=== PATIENT | female | born 1930 | race Caucasian/White ===

== ENCOUNTER 2018-07-21 08:09 | Inpatient (IN) ==
[2018-07-21] MEDS ORDERED: ONDANSETRON 4 MG/2 ML VIAL ONE ×2 (08:49→10:13)
[2018-07-21] MEDS ORDERED: LIDOCAINE 2% 5 ML VIAL ONE (09:00)
[2018-07-21] MEDS ORDERED: PROPOFOL 200 MG/20 ML VIAL IV ONE (09:00)
[2018-07-21] MEDS: ONDANSETRON 4 MG/2 ML VIAL IV PRN ×6 (09:24→23:15)
[2018-07-21] MEDS: LACTATED RINGERS 1,000 ML IV SCH (09:24)
[2018-07-21] MEDS ORDERED: ONDANSETRON 4 MG/2 ML VIAL IV PRN (12:06)
[2018-07-21] MEDS ORDERED: PHENOL 1.4% THROAT SPRAY 177 ML BOTTLE PO PRN (12:10)
[2018-07-21] MEDS ORDERED: SODIUM CHLORIDE 0.9% 1,000 ML IV PRN (12:10)
[2018-07-21 15:12] LABS: Hematocrit 28.7 VOL% (35.7-47.0); Hemoglobin 8.3 GM/DL (12.0-16.0)
[2018-07-21] MEDS: SODIUM CHLORIDE 0.45% 1,000 ML IV SCH (15:32)
[2018-07-21] MEDS: PANTOPRAZOLE 40 MG VIAL IV SCH (20:42)
[2018-07-21] MEDS: HYDROmorphone 2 MG/1 ML VIAL IV PRN (20:43)
[2018-07-22] MEDS: ONDANSETRON 4 MG/2 ML VIAL IV PRN (04:22)
[2018-07-22 05:16] LABS: Basophils # 0.1 10*3/uL (0.0-0.2); Basophils % 0.9 % (0.0-0.8); Eosinophils % 0.2 % (0.00-10.9); Hematocrit 34.3 VOL% (35.7-47.0); Hemoglobin 10.3 GM/DL (12.0-16.0); Immature Granulocytes % 0.5 %; Immature Granulocytes Absolute 0.05 #; Lymphocytes # 1.1 10*3/uL (1.4-4.0); Lymphocytes % 11.2 % (21.3-54.2); Mean Corpuscular Hemoglobin 29 PG (27-34); Mean Corpuscular Volume 97.7 FL (87-102); Mean Platelet Volume 12.2 FL (9.6-12.0); Monocytes # 1.9 10*3/uL (0.11-0.8); Monocytes % 18.9 % (1.7-12.7); Neutrophils # 6.7 10*3/uL (1.4-7.4); Neutrophils % 68.3 % (38.7-73.9); Platelet Count 160 T/CUMM (130-400); Red Blood Count 3.51 MC/CUMM (3.8-5.5); Red Cell Distribution Width 25.1 % (9.3-17.3); White Blood Count 9.8 T/CUMM (4-12)
[2018-07-22 05:34] LABS: Hemoglobin 10.3 GM/DL (12.0-16.0)
[2018-07-22 05:40] LABS: Atypical Lymphocytes Few; Band Neutrophils 1 % (0-10); Hypochromasia 1+; Lymphocytes 9 % (20-55); Macrocytosis 1+; Platelet Estimate Adequate; Polychromasia Slight; Segmented Neutrophils 73 % (50-85); Total Cells Counted 100
[2018-07-22 05:42] LABS: Albumin 2.1 G/DL (3.4-5.0); Bilirubin,Total 1.4 MG/DL (0.2-1.0); Calcium 8.9 MG/DL (8.5-10.1); Osmolality,Calculated 282.5 MOS/KG (273-304); Potassium 4.5 MMOL/L (3.5-5.1); Total Protein 5.6 G/DL (6.4-8.3)
[2018-07-22] MEDS: PANTOPRAZOLE 40 MG VIAL IV SCH ×2 (08:51→20:49)
[2018-07-22] MEDS: HYDROmorphone 2 MG/1 ML VIAL IV PRN (08:58)
[2018-07-22] MEDS: SODIUM CHLORIDE 0.45% 1,000 ML IV SCH ×3 (09:12→17:44)
[2018-07-22] MEDS: LACTATED RINGERS 1,000 ML IV SCH (09:12)
[2018-07-22] MEDS ORDERED: ceFAZolin 1,000 MG in SYRINGE 1 EACH IV ONE (13:00)
[2018-07-22] MEDS ORDERED: LIDOCAINE 1%/EPI INJ 20 ML VIAL ONE (13:01)
[2018-07-22] MEDS ORDERED: FAT EMULSION 20% 250 ML IV SCH (14:00)
[2018-07-22 14:03] LABS: Cancer Antigen 19-9 4.9 U/ML (0-37); Carcinoembryonic Antigen 1.3 NG/ML (0.0-5.0)
[2018-07-22] MEDS ORDERED: GLUCAGON 1 MG VIAL IM PRN (15:19)
[2018-07-22] MEDS ORDERED: DEXTROSE 50% 25 GM/50 ML VIAL IV PRN (15:19)
[2018-07-22] MEDS: INSULIN REGULAR 100 UNIT/ML SUBCUT SCH ×2 (17:21→23:08)
[2018-07-22] MEDS: TRACE ELEMENTS (5) 1 ML, MULTIVITAMIN INJ 10 ML in AMINO ACIDS/DEXT/LYTES 4.25-5% 2,000 ML IV SCH (17:38)
[2018-07-23] MEDS: HYDROmorphone 2 MG/1 ML VIAL IV PRN ×3 (01:38→20:47)
[2018-07-23 05:45] LABS: Basophils % 0.4 % (0.0-0.8); Hematocrit 31.3 VOL% (35.7-47.0); Hemoglobin 10.3 GM/DL (12.0-16.0); Immature Granulocytes % 0.8 %; Immature Granulocytes Absolute 0.08 #; Lymphocytes # 0.9 10*3/uL (1.4-4.0); Lymphocytes % 9.1 % (21.3-54.2); Mean Corpuscular HGB Conc 32.9 GM/DL (32-36); Mean Corpuscular Hemoglobin 33 PG (27-34); Mean Corpuscular Volume 98.7 FL (87-102); Mean Platelet Volume 11.3 FL (9.6-12.0); Monocytes % 9.4 % (1.7-12.7); Neutrophils # 8.1 10*3/uL (1.4-7.4); Neutrophils % 80.3 % (38.7-73.9); Platelet Count 172 T/CUMM (130-400); Red Blood Count 3.17 MC/CUMM (3.8-5.5); Red Cell Distribution Width 24.8 % (9.3-17.3); White Blood Count 10.1 T/CUMM (4-12)
[2018-07-23] MEDS: INSULIN REGULAR 100 UNIT/ML SUBCUT SCH ×2 (06:03→11:57)
[2018-07-23 06:06] LABS: Hypochromasia Slight; Platelet Estimate Adequate
[2018-07-23 06:07] LABS: Macrocytosis Slight
[2018-07-23 06:13] LABS: Albumin 1.7 G/DL (3.4-5.0); Bilirubin,Total 2.1 MG/DL (0.2-1.0); Calcium 7.6 MG/DL (8.5-10.1); Osmolality,Calculated 275.2 MOS/KG (273-304); Potassium 4.3 MMOL/L (3.5-5.1); Total Protein 5.1 G/DL (6.4-8.3)
[2018-07-23 07:01] LABS: Calcium 7.4 MG/DL (8.5-10.1)
[2018-07-23 07:02] LABS: Osmolality,Calculated 276.2 MOS/KG (273-304); Potassium 4.3 MMOL/L (3.5-5.1)
[2018-07-23] MEDS: PANTOPRAZOLE 40 MG VIAL IV SCH ×2 (09:56→20:48)
[2018-07-23] MEDS: ONDANSETRON 4 MG/2 ML VIAL IV PRN ×2 (15:55→20:04)
[2018-07-23] MEDS: TRACE ELEMENTS (5) 1 ML, MULTIVITAMIN INJ 10 ML in AMINO ACIDS/DEXT/LYTES 4.25-5% 2,000 ML IV SCH (17:18)
[2018-07-23] MEDS: SODIUM CHLORIDE 0.45% 1,000 ML IV SCH (17:20)
[2018-07-24 05:13] LABS: Basophils % 0.3 % (0.0-0.8); Eosinophils % 0.5 % (0.00-10.9); Hematocrit 30.5 VOL% (35.7-47.0); Hemoglobin 9.1 GM/DL (12.0-16.0); Immature Granulocytes % 0.8 %; Immature Granulocytes Absolute 0.07 #; Lymphocytes # 0.6 10*3/uL (1.4-4.0); Lymphocytes % 7.2 % (21.3-54.2); Mean Corpuscular HGB Conc 29.8 GM/DL (32-36); Mean Corpuscular Hemoglobin 29 PG (27-34); Mean Corpuscular Volume 97.1 FL (87-102); Mean Platelet Volume 12.1 FL (9.6-12.0); Monocytes # 1.1 10*3/uL (0.11-0.8); NRBC # 0.02 10*3/uL; Neutrophils % 79.2 % (38.7-73.9); Platelet Count 147 T/CUMM (130-400); Red Blood Count 3.14 MC/CUMM (3.8-5.5); Red Cell Distribution Width 24.2 % (9.3-17.3); White Blood Count 8.9 T/CUMM (4-12)
[2018-07-24 05:31] LABS: Calcium 8.1 MG/DL (8.5-10.1); Osmolality,Calculated 275.2 MOS/KG (273-304); Potassium 4.3 MMOL/L (3.5-5.1)
[2018-07-24 05:37] LABS: Band Neutrophils 2 % (0-10); Lymphocytes 4 % (20-55); Nucleated Red Blood Cells 1 (0-5); Segmented Neutrophils 81 % (50-85)
[2018-07-24 05:38] LABS: Eosinophils 2 % (0-10); Platelet Estimate Adequate; Total Cells Counted 100
[2018-07-24] MEDS: PANTOPRAZOLE 40 MG VIAL IV SCH ×2 (08:44→21:27)
[2018-07-24] MEDS: ONDANSETRON 4 MG/2 ML VIAL IV PRN ×2 (12:20→23:52)
[2018-07-24] MEDS: TRACE ELEMENTS (5) 1 ML, MULTIVITAMIN INJ 10 ML in AMINO ACIDS/DEXT/LYTES 4.25-5% 2,000 ML IV SCH (21:27)
[2018-07-25] MEDS: METOCLOPRAMIDE 10 MG/2 ML VIAL IV SCH ×4 (00:10→18:32)
[2018-07-25] MEDS: PANTOPRAZOLE 40 MG VIAL IV SCH ×2 (10:04→20:41)
[2018-07-25] MEDS: AZITHROMYCIN INJ 500 MG in SODIUM CHLORIDE 0.9% 250 ML IV SCH (14:02)
[2018-07-25] MEDS: TRACE ELEMENTS (5) 1 ML, MULTIVITAMIN INJ 10 ML in AMINO ACIDS/DEXT/LYTES 4.25-5% 2,000 ML IV SCH (23:22)
[2018-07-26] MEDS: METOCLOPRAMIDE 10 MG/2 ML VIAL IV SCH ×4 (00:42→18:04)
[2018-07-26 05:53] LABS: Basophils # 0.1 10*3/uL (0.0-0.2); Basophils % 0.7 % (0.0-0.8); Eosinophils # 0.1 10*3/uL (0.0-0.87); Eosinophils % 0.7 % (0.00-10.9); Hematocrit 29.6 VOL% (35.7-47.0); Hemoglobin 8.9 GM/DL (12.0-16.0); Immature Granulocytes % 1.2 %; Immature Granulocytes Absolute 0.09 #; Lymphocytes # 0.6 10*3/uL (1.4-4.0); Lymphocytes % 8.7 % (21.3-54.2); Mean Corpuscular HGB Conc 30.1 GM/DL (32-36); Mean Corpuscular Hemoglobin 30 PG (27-34); Mean Corpuscular Volume 99.3 FL (87-102); Mean Platelet Volume 12.3 FL (9.6-12.0); Monocytes # 1.5 10*3/uL (0.11-0.8); NRBC # 0.02 10*3/uL; Neutrophils # 4.9 10*3/uL (1.4-7.4); Neutrophils % 67.7 % (38.7-73.9); Platelet Count 119 T/CUMM (130-400); Red Blood Count 2.98 MC/CUMM (3.8-5.5); Red Cell Distribution Width 24.3 % (9.3-17.3); White Blood Count 7.3 T/CUMM (4-12)
[2018-07-26 06:12] LABS: Calcium 8.4 MG/DL (8.5-10.1); Osmolality,Calculated 274.1 MOS/KG (273-304); Potassium 4.5 MMOL/L (3.5-5.1)
[2018-07-26 06:14] LABS: Albumin 1.6 G/DL (3.4-5.0); Bilirubin,Total 1.2 MG/DL (0.2-1.0); Calcium 8.4 MG/DL (8.5-10.1); Osmolality,Calculated 274.1 MOS/KG (273-304); Potassium 4.5 MMOL/L (3.5-5.1)
[2018-07-26 06:29] LABS: Lymphocytes 7 % (20-55); Platelet Estimate Decreased; Polychromasia Few; Segmented Neutrophils 76 % (50-85); Total Cells Counted 100
[2018-07-26] MEDS: PANTOPRAZOLE 40 MG VIAL IV SCH ×2 (11:16→21:12)
[2018-07-26] MEDS: AZITHROMYCIN INJ 500 MG in SODIUM CHLORIDE 0.9% 250 ML IV SCH (11:20)
[2018-07-27] MEDS: METOCLOPRAMIDE 10 MG/2 ML VIAL IV SCH ×4 (00:39→18:13)
[2018-07-27] MEDS ORDERED: FUROSEMIDE 40 MG/4 ML VIAL IV ONE (11:31)
[2018-07-27] MEDS: AZITHROMYCIN INJ 500 MG in SODIUM CHLORIDE 0.9% 250 ML IV SCH (12:06)
[2018-07-27] MEDS: PANTOPRAZOLE 40 MG VIAL IV SCH ×2 (12:10→21:08)
[2018-07-28] MEDS: METOCLOPRAMIDE 10 MG/2 ML VIAL IV SCH ×3 (00:57→12:00)
[2018-07-28] MEDS ORDERED: ceFAZolin 1,000 MG in SYRINGE 1 EACH IV ONE (06:30)
[2018-07-28] MEDS ORDERED: LIDOCAINE 1%/EPI INJ 20 ML VIAL ONE (08:36)
[2018-07-28] MEDS ORDERED: TISSUE ADHESIVE 1 EACH APPLICATOR TOP ONE ×2 (08:36→12:02)
[2018-07-28] MEDS ORDERED: HEPARIN 5,000 UNIT/1 ML VIAL ONE (08:44)
[2018-07-28] MEDS ORDERED: LACTATED RINGERS 1,000 ML IV SCH (09:30)
[2018-07-28] MEDS: PANTOPRAZOLE 40 MG VIAL IV SCH (09:32)
[2018-07-28] MEDS: AZITHROMYCIN INJ 500 MG in SODIUM CHLORIDE 0.9% 250 ML IV SCH (11:10)
[2018-07-28] MEDS ORDERED: PROPOFOL 200 MG/20 ML VIAL IV ONE (12:16)
[2018-07-28] MEDS ORDERED: PHENYLEPHRINE 1 MG/10 ML SYRINGE IV ONE (12:17)
[2018-07-28 19:39] VITALS: BP 114/67
== END 2018-07-28 15:32 | disposition swing bed (61) | DRG 327 ==
LOC: N.GILAB 08:09 → N.5E 12:06
PROVIDERS: ADMIT Internal Medicine Gastroenterology; ATTEND Internal Medicine Gastroenterology